=== PATIENT | male | born 1965 | race Caucasian/White ===

== ENCOUNTER 2022-08-26 20:56 | Emergency (ER) | payer OTHER ==
[2022-08-26 21:37] VITALS: RESP 20; BMI 24.3
[2022-08-26] MEDS ORDERED: ACETAMINOPHEN 500 MG TABLET (FP) PO ONE (21:45)
[2022-08-26 22:04] LABS: PH,URINE 5.5 (5.0-8.0); URINE APPEARANCE CLEAR; URINE BILIRUBIN NEGATIVE (NEGATIVE); URINE COLOR YELLOW; URINE GLUCOSE (UA) 3+ (NEGATIVE); URINE KETONE NEGATIVE (NEGATIVE); URINE LEUK ESTERASE NEGATIVE (NEGATIVE); URINE NITRITE NEGATIVE (NEGATIVE); URINE PROTEIN NEGATIVE (NEGATIVE); URINE UROBILINOGEN 0.2 mg/dL (0.2-1.0)
[2022-08-26] MEDS ORDERED: ACETAMINOPHEN 325 MG TABLET (FP) ONE (23:50)
[2022-08-26] MEDS ORDERED: KETOROLAC TROMETHAMINE 30 MG/1 ML VIAL IM ONE (23:54)
[2022-08-27] MEDS ORDERED: KETOROLAC TROMETHAMINE 30 MG/1 ML VIAL ONE (00:01)
[2022-08-27 07:48] VITALS: BP 116/92; PULSE 85; TEMP 98.3
== END 2022-08-27 08:27 | disposition short-term general hospital (02) ==
LOC: JER 20:56
PROC: 3E0233Z Introduction of Anti-inflammatory into Muscle, Percutaneous Approach (ICD-10-PCS; principal; 2022-08-26)
DX: N43.3 Hydrocele, unspecified (principal); I86.1 Scrotal varices
CPT/HCPCS: 36415; 76870-TC; 81003; 87086; 87491; 87591; 87661; 99285-25